=== PATIENT | female | born 1985 | race Caucasian/White ===

== ENCOUNTER 2023-03-06 06:17 | Emergency (ER) | payer MEDICAID ==
[~2023-03-06] VITALS: Ht 152.4 cm; Wt 68.0 kg
[2023-03-06 06:32] VITALS: O2SAT 98
[2023-03-06] MEDS ORDERED: KETOROLAC 60MG/2ML VIAL IM ONE (07:00)
[2023-03-06 07:20] VITALS: BP 150/75
[2023-03-06] MEDS ORDERED: IBUP-2029 MT (07:47)
[2023-03-06 07:59] VITALS: PULSE 96; RESP 16; TEMP 98.6
== END 2023-03-06 08:00 | disposition home or self-care (01) ==
LOC: ER 06:17
DX: M75.32 Calcific tendinitis of left shoulder (principal)
CPT/HCPCS: 81025; 73030; 96372; 99283; J1885; Z7610